=== PATIENT | female | born 1935 | race Caucasian/White ===

== ENCOUNTER → 2018-01-07 | Outpatient (CLI) | payer MEDICARE, MEDICAID ==
[~2018-01-07] MED LIST: ASPI1CPM9 PO; BUME2TAB PO; CIME200T6 PO; ENAL20TA PO; GABA300C10 PO; HYDR-3237 PO; METF850T2 PO; NIAC500T PO; POTA10TA6 PO; PRAV10TA2 PO; REGADENOSON 0.4 MG/5 ML SYRINGE ONE; TRIAMTERENE PO
== END ==
LOC: CFH 07:52
PROVIDERS: ATTEND Internal Medicine Cardiovascular Disease
DX: I10 Essential (primary) hypertension (principal); I20.9 Angina pectoris, unspecified
CPT/HCPCS: 78452; 93017; A9502; J2785

== ENCOUNTER 2019-11-09 17:32 | Emergency (ER) | payer MEDICARE, MEDICAID ==
[~2019-11-09] VITALS: Ht 165.1 cm; Wt 95.0 kg
[~2019-11-09 17:32] MED LIST changes: -BUME2TAB PO; +BUME2TAB3 PO; +METF850T10 PO; -METF850T2 PO; -REGADENOSON 0.4 MG/5 ML SYRINGE ONE
--- NOTE | 2019-11-09 17:44 | NUR ---
BIB [facility] FROM URGENT CARE FOR HTN. PT DENIES CP, SOB. REPORTS "FEELING FUNNY", CURRENTLY FEELING BETTER. AWAITING ERMD EVAL.
[2019-11-09] MEDS ORDERED: MECL25TA4 PO (17:54)
[2019-11-09] MEDS ORDERED: ATOR20TA37 PO (17:54)
[2019-11-09] MEDS ORDERED: CLOP75TA52 PO (17:54)
[2019-11-09] MEDS ORDERED: METO5TAB5 PO (17:54)
[2019-11-09] MEDS ORDERED: DULA1.5P INJ (17:54)
[2019-11-09] MEDS ORDERED: ENAL10TA PO (17:54)
[2019-11-09] MEDS ORDERED: ACETAMINOPHEN 500 MG TABLET PO ONE (18:30)
[2019-11-09] MEDS ORDERED: ACETAMINOPHEN 500 MG TABLET ONE (18:31)
[2019-11-09 18:46] LABS: BASOPHILS # (AUTO) 0.03 x10^3/uL (0-0.1); BASOPHILS % (AUTO) 0 % (0-1); EOSINOPHILS % (AUTO) 3 % (1-7); LYMPHOCYTES # (AUTO) 1.89 x10^3/uL (1-3.4); LYMPHOCYTES % (AUTO) 26 % (22-44); MD NO; MEAN CORPUSCULAR HEMOGLOBIN 29.7 pg (27.0-34.8); MEAN CORPUSCULAR HGB CONC 32.1 g/dL (32.4-35.8); MEAN CORPUSCULAR VOLUME 92.7 fL (80-100); MEAN PLATELET VOLUME 9.6 fL (7.4-10.4); MONOCYTES # (AUTO) 0.48 x10^3/uL (0.2-0.8); MONOCYTES % (AUTO) 7 % (2-9); NEUTROPHILS # (AUTO) 4.77 x10^3/uL (1.8-6.8); NEUTROPHILS % (AUTO) 65 % (42-75); PLATELET COUNT 246 x10^3/uL (130-400); RED BLOOD COUNT 3.84 x10^6/uL (3.82-5.3); RED CELL DISTRIBUTION WIDTH 13.7 % (9.6-15.2)
[2019-11-09 18:50] LABS: ALANINE AMINOTRANSFERASE 31 U/L (12-78); ALBUMIN 3.5 g/dL (3.4-5.0); ANION GAP 7 mmol/L (5-15); CALCIUM 8.8 mg/dL (8.5-10.1); CHLORIDE 106 mmol/L (98-107); CREATININE 0.71 mg/dL (0.55-1.02)
[2019-11-09 18:55] LABS: ALKALINE PHOSPHATASE 73 U/L (45-117); BILIRUBIN,TOTAL 0.4 mg/dL (0.2-1.0); TOTAL PROTEIN 6.8 g/dL (6.4-8.2); TROPONIN I < 0.015 ng/mL (0.000-0.045)
[2019-11-09 19:32] VITALS: BP 137/74
== END 2019-11-09 19:35 | disposition home or self-care (01) ==
LOC: ED 19:33
DX: I10 Essential (primary) hypertension (principal); R68.84 Jaw pain; E11.9 Type 2 diabetes mellitus without complications; E78.00 Pure hypercholesterolemia, unspecified
CPT/HCPCS: 36415; 71045; 80053; 83690; 84484; 85025; 93005; 99284

== ENCOUNTER 2020-07-23 21:05 | Emergency (ER) | payer MEDICARE, MEDICAID ==
[~2020-07-23] VITALS: Ht 165.1 cm; Wt 92.6 kg
[~2020-07-23 21:05] MED LIST changes: +ATOR20TA37 PO; +CLOP75TA52 PO; +DULA1.5P INJ; +ENAL10TA PO; +MECL-101 PO; +METO5TAB5 PO
--- NOTE | 2020-07-23 21:10 | NUR ---
pt BIB [facility] from home c/o high B/P and palpitations tonight with nausea. pt denies SOB, denies CP and reports that she feels better upon admit. pt took her own clonidine and furosemide [employer], and reports that he SBP [employer]ER was over 200. denies dizziness , no loss or change of vision. no facial droop. A&O x4. pt speaks romansh but her primary language is [place]ian. she is very hard of hearing pt daughter at bedside to assist with translation, Coni age 61, cell phone number [phone] EKG has been to bedside
--- NOTE | 2020-07-23 21:15 | NUR ---
[employer]ICAL [employer]GRAMMER 136
--- NOTE | 2020-07-23 21:15 | NUR ---
report to Cinda PADILLA
--- NOTE | 2020-07-23 21:31 | NUR ---
PT UP TO BATHROOM WITH STEADY GAIT. USED CANE WITH STANDBY ASSIST.
--- NOTE | 2020-07-23 22:32 | NUR ---
Pt resting comfortably. Remains on tele, NSR noted. Pt denies chest pain/SOB/palpitations. States she feels back to baseline. Daughter at bedside, call light within reach
[2020-07-23 22:34] LABS: BASOPHILS # (AUTO) 0.02 x10^3/uL (0-0.1); BASOPHILS % (AUTO) 0 % (0-1); EOSINOPHILS # (AUTO) 0.23 x10^3/uL (0-0.4); EOSINOPHILS % (AUTO) 3 % (1-7); LYMPHOCYTES % (AUTO) 17 % (22-44); MD NO; MEAN CORPUSCULAR HGB CONC 32.3 g/dL (32.4-35.8); MEAN CORPUSCULAR VOLUME 89.7 fL (80-100); MEAN PLATELET VOLUME 9.4 fL (7.4-10.4); MONOCYTES # (AUTO) 0.53 x10^3/uL (0.2-0.8); MONOCYTES % (AUTO) 6 % (2-9); NEUTROPHILS # (AUTO) 7.11 x10^3/uL (1.8-6.8); NEUTROPHILS % (AUTO) 75 % (42-75); PLATELET COUNT 255 x10^3/uL (130-400); RED BLOOD COUNT 4.28 x10^6/uL (3.82-5.3); RED CELL DISTRIBUTION WIDTH 13.9 % (9.6-15.2)
[2020-07-23 22:43] LABS: ALANINE AMINOTRANSFERASE 27 U/L (12-78); ANION GAP 6 mmol/L (5-15); CALCIUM 9.4 mg/dL (8.5-10.1); CHLORIDE 105 mmol/L (98-107); CREATININE 0.93 mg/dL (0.55-1.02)
[2020-07-23 22:47] LABS: ALKALINE PHOSPHATASE 89 U/L (45-117); BILIRUBIN,TOTAL 0.4 mg/dL (0.2-1.0); TOTAL PROTEIN 7.9 g/dL (6.4-8.2); TROPONIN I < 0.015 ng/mL (0.000-0.045)
[2020-07-23 23:51] VITALS: BP 121/63
== END 2020-07-23 23:54 | disposition home or self-care (01) ==
LOC: ED 22:39
DX: I10 Essential (primary) hypertension (principal); H57.89 Other specified disorders of eye and adnexa; R94.31 Abnormal electrocardiogram [ECG] [EKG]; E78.00 Pure hypercholesterolemia, unspecified; E11.9 Type 2 diabetes mellitus without complications
CPT/HCPCS: 36415; 80053; 83880; 84484; 85025; 93005; 99284

== ENCOUNTER 2021-02-09 12:26 | Emergency (ER) | payer MEDICAID, MEDICARE ==
[~2021-02-09] VITALS: Ht 165.1 cm; Wt 92.8 kg
[~2021-02-09 12:26] MED LIST changes: -ENAL10TA PO; +ENAL10TA9 PO; -ENAL20TA PO; +ENAL20TA9 PO
--- NOTE | 2021-02-09 13:18 | NUR ---
PT CAME IN [facility] LOWER LEG SWELLING THAT STARTED 2 DAYS AGO. PT DENIES HX OF CHF OR BEING NON AMBULATORY FOR AN EXTENDED PERIOD OF TIME KEVAN. PT RESTING IN [place]. EKG COMPLETE. MD BEDSIDE FOR ASSESSMENT. WARM BLANKET PROVIDED
--- NOTE | 2021-02-09 13:46 | NUR ---
PT RESTING IN [facility]. LAB BEDSIDE.
[2021-02-09 14:00] LABS: BASOPHILS % (AUTO) 1 % (0-1); EOSINOPHILS % (AUTO) 3 % (1-7); LYMPHOCYTES % (AUTO) 29 % (22-44); MEAN CORPUSCULAR HEMOGLOBIN 29.1 pg (27.0-34.8); MEAN CORPUSCULAR HGB CONC 32.7 g/dL (32.4-35.8); MEAN PLATELET VOLUME 9.2 fL (7.4-10.4); MONOCYTES % (AUTO) 9 % (2-9); NEUTROPHILS % (AUTO) 58 % (42-75); PLATELET COUNT 240 x10^3/uL (130-400); RED BLOOD COUNT 3.67 x10^6/uL (3.82-5.3); RED CELL DISTRIBUTION WIDTH 13.8 % (9.6-15.2)
[2021-02-09 14:01] LABS: MD NO
[2021-02-09 14:07] LABS: ALBUMIN 3.6 g/dL (3.4-5.0); ANION GAP 6 mmol/L (5-15); CALCIUM 9.1 mg/dL (8.5-10.1); CHLORIDE 106 mmol/L (98-107); CREATININE 0.98 mg/dL (0.55-1.02)
[2021-02-09 14:11] LABS: TROPONIN I < 0.015 ng/mL (0.000-0.045)
--- NOTE | 2021-02-09 14:30 | NUR ---
US IN WITH PT AT THIS TIME
--- NOTE | 2021-02-09 14:49 | NUR ---
BEDSIDE FOR RECHECK
[2021-02-09 15:39] VITALS: BP 131/58
== END 2021-02-09 15:40 | disposition home or self-care (01) ==
LOC: ED 12:58
DX: I89.0 Lymphedema, not elsewhere classified (principal); R51.9 Headache, unspecified; R07.89 Other chest pain; R94.31 Abnormal electrocardiogram [ECG] [EKG]
CPT/HCPCS: 36415; 71045; 80048; 82040; 83880; 84484; 85025; 93005; 93970; 99285